=== PATIENT | female | born 1955 | race Caucasian/White ===

== ENCOUNTER → 2017-02-20 | Outpatient (CLI) | payer OTHER ==
[~2017-02-20] MED LIST: ASPIRIN PO; CARAFATE PO; CARAFATE1 G PO; COZAAR25 MG PO; DICYCLOMINE HCL20 MG PO; DOXYCYCLINE PO; ELOCON OINT45 GM EXT; HYDROCODON-ACE1 EAC4 PO; KLONOPIN0.5 MG PO; LISINOPRIL PO; LORTAB 5/500 TA1 TA1 PO; MACROBID100 MG PO; MAG-OXIDE400 MG PO; MICRO-K PO; OMEPRAZOLE40 MG PO; PHENERGAN PO; PHENERGAN W/CO120 ML PO; PHENERGAN25 M1 PO; PRAVACHOL10 MG PO; PRAVACHOL20 MG; PRILOSEC PO; PROPRANOLOL PO; PROTONIX PO; PYRIDIUM100 MG PO; TETRACYCLINE PO; VICODIN PO; [UNRECOGNIZED DRUG - REMARK]
--- NOTE | ~2017-02-20 | MY6 ---
[facility] A Service of [facility] & [facility] RADIOLOGY TEXT RESULTS PATIENT: DIA LARSON LOCATION: [facility] : 53 UNIT #: [id number] AGE: [address]: Hernesto Berg MD SEX: F ORDER DR: [id number] [facility] [address]. [place], [place] [address] [id number] O MR#: [id number] Acc #: [id number] NAME: DIA LARSON. : 1955 SEX: F STUDY DATE/TIME: 02/20/2017 10:04 UNIT: [facility] ROOM: STUDY DESCRIPTION: MY Mammogram Dx Dig Ran Attending Physician: Hernesto Berg M.D. Ordering Physician: Hernesto Berg M.D. Primary Care Physician: Hernesto Berg M.D. MEDICAL IMAGING REPORT This report is preliminary unless electronic signature is present EXAM Bilateral digital diagnostic mammogram. INDICATIONS 6-month followup indeterminate bilateral breast microcalcifications. PROCEDURE Bilateral CC and MLO views. Spot magnification views of both breasts in the CC and true lateral projections. COMPARISON 08/13/2016 FINDINGS There are multiple groups of benign calcifications in both breasts. The 4 groups in question in the right breast are unchanged and have overall benign morphology. The 2 groups in the left breast described on the previous study are also unchanged and have overall benign morphology. There is no dominant mass. IMPRESSION Benign appearing calcifications in both breasts are not significantly changed from 08/13/2016. Recommend patient continue with yearly screening. Patients over the age of 40 are entered into a reminder system with target due date for the next mammogram. BIRADS: 2 Benign finding. Dictated by... Larry Rutledge M.D. THIS IS AN ELECTRONICALLY VERIFIED REPORT [facility] A Service of [facility] & [facility] RADIOLOGY TEXT RESULTS PATIENT: DIA LARSON LOCATION: [facility] : 53 UNIT #: [id number] AGE: [address]: Hernesto Berg MD SEX: F ORDER DR: Larry Rutledge M.D. at 02/23/2017 7:43 AM EED/sejal TD: 02/20/2017 12:58 JOB #: [id number] MEDICAL IMAGING REPORT Page 1 of 1 COPY
== END | disposition home or self-care (01) ==
LOC: CMAM 09:43
DX: R92.8 Other abnormal and inconclusive findings on diagnostic imaging of breast (principal); R92.1 Mammographic calcification found on diagnostic imaging of breast
CPT/HCPCS: G0204